=== PATIENT | female | born 1970 ===

== ENCOUNTER 2020-09-02 13:24 | Outpatient (REF) | payer BC, SELFPAY ==
--- NOTE | ~2020-09-02 | MM_ITS ---
EXAMINATION: MM SCREENING DIGITAL BREAST TOMOSYNTHESIS, BILATERAL CLINICAL INFORMATION: Screening. Asymptomatic. The lifetime risk of breast cancer based on the Tyrer-Cuzick Model is 7.2%. COMPARISON: Mammography: July 02, 2015 TECHNIQUE: Digital breast tomosynthesis is performed in both the craniocaudal and mediolateral oblique views along with computer-aided detection (CAD). Synthesized 2D images are generated from the tomosynthesis. FINDINGS: The breasts are heterogeneously dense, which may obscure small masses (ACR BI-RADS breast composition Category c). There are no significant masses, abnormal calcifications, or other abnormalities. MM/MM tomosynthesis screening BI IMPRESSION: There are no significant changes from prior study. ASSESSMENT: BI-RADS 1: Negative RECOMMENDATION: Routine annual mammography screening. This patient's information was entered into a reminder system with a target due date for their next mammogram.
== END 2020-09-02 13:25 | disposition home or self-care (01) ==
LOC: HO.MAMMO 13:24
PROVIDERS: Visit Provider Nurse Practitioner Family
DX: Z12.31 Encounter for screening mammogram for malignant neoplasm of breast (principal)
CPT/HCPCS: 77063; 77067

== ENCOUNTER 2022-03-15 10:04 | Outpatient (REF) | payer BC, SELFPAY ==
[2022-03-15 11:14] LABS: Appearance Urine Cloudy; Color Urine Other; Glucose Urine UA Negative (Negative); Leukocyte Esterase Urine Trace (Negative); Nitrite Urine Negative (Negative); PH 6.5 (5.0-9.0); UMIC TRIGGER UACC YES; Urine Blood Large (3+) (Negative); Urine Ketones Negative (Negative); Urine Protein 30 (1+) mg/dL (Neg-Trace)
[2022-03-15 11:28] LABS: Bacteria Urine Trace (None Seen); Hyaline Casts Urine 0-2 /LPF (0-2); RBC Urine >20 /HPF (0-2); UACC Culture Trigger YES; WBC Urine 21-50 /HPF (0-5)
[2022-03-15 11:37] LABS: MANUAL DIFF FLAG NO
[2022-03-15 11:54] LABS: Basophils Percent Auto 0.4 % (0-2); Eosinophils Absolute Auto 0.2 X10*3/uL (0.0-0.4); Eosinophils Percent Auto 2.6 % (0-4); Hematocrit 35.5 % (37.0-47.0); Hemoglobin 10.9 g/dl (12.0-16.0); Imm Gran Abs Auto 0.02 X10*3/uL (0.00-0.03); Imm Gran Pct Auto 0.3 % (0.0-0.4); Lymphocytes Absolute Auto 1.8 X10*3/uL (1.2-4.9); Lymphocytes Percent Auto 24.6 % (20-40); Mean Corpuscular HGB Conc 30.7 g/dl (31.0-35.0); Mean Corpuscular Hemoglobin 25.1 pg (27.0-33.0); Mean Corpuscular Volume 81.6 fL (80.0-98.0); Mean Platelet Volume 9.1 fL (9.4-12.3); Monocytes Absolute Auto 0.4 X10*3/uL (0.1-1.2); Monocytes Percent Auto 5.3 % (2-11); Neutrophils Absolute Auto 4.9 x10*3/uL (2.0-8.3); Neutrophils Percent Auto 66.8 % (45-73); Platelet Count 423 X10*3/uL (160-400); Red Blood Count 4.35 X10*6/uL (4.20-5.50); Red Cell Distribution Width 14.5 % (11.0-16.0); White Blood Count 7.4 X10*3/uL (4.8-10.8)
[2022-03-15 12:12] LABS: Alanine Aminotransferase 11 U/L (0-31); Albumin Level 4.3 g/dL (3.5-5.0); Alkaline Phosphatase 106 U/L (39-117); Anion Gap 11 (12-20); Aspartate Amino Transferase 15 U/L (5-31); Bilirubin Total 0.4 mg/dL (0.0-1.0); Blood Urea Nitrogen 14 mg/dL (9-16); Calcium 9.7 mg/dL (8.4-10.2); Carbon Dioxide 30 mmol/L (22-29); Chloride 104 mmol/L (96-108); Cholesterol 236 mg/dL; Estimated Glomerular Filt Rate > 60; Glucose Fasting 103 mg/dL (60-99); HDL Cholesterol 62 mg/dL; LDL Cholesterol Calculated 156 mg/dl; Potassium 4.7 mmol/L (3.3-5.1); Sodium 140 mmol/L (135-145); Total Protein 7.8 g/dL (6.5-8.0); Triglycerides 94 mg/dL
[2022-03-15 12:31] LABS: TSH reflex Free T4 2.79 uIU/mL (0.32-4.0)
[2022-03-17 17:46] LABS: UACC Culture Trigger NO
== END 2022-03-15 10:05 | disposition home or self-care (01) ==
LOC: HO.HMGCLDS 10:04
PROVIDERS: PCP Nurse Practitioner Family; Visit Provider Nurse Practitioner Family
DX: I10 Essential (primary) hypertension (principal)
CPT/HCPCS: 36415; 80053; 80061; 81001; 84443; 85025; 87086

== ENCOUNTER → 2022-06-16 12:50 | Outpatient (REF) | payer BC, SELFPAY ==
--- NOTE | 2022-06-16 12:56 | CA_ITS ---
Transthoracic Echocardiogram Patient (Last, First, Middle): Danielle Salazar, Gender: Female Date of : 1970 Age: 52 Procedure Date: 06/16/2022 Procedure Type: Transthoracic Echocardiogram Location: OP Height: 152.4 cm Weight: 73.48 kg BSA: 1.71 m2 Heart Rate: 76 bpm BP: 145 / 85 mmHg Director Of Sustainability: MARGA Alexander MD: Reuben Slaughter [facility] Crop Specialist: Jeffry Stewart MD Symptoms: R01.1 - Cardiac murmur, unspecified Study Quality: Good ECG Rhythm: Sinus Conclusions: - Essentially normal study Findings Left Ventricle Normal left ventricular size, thickness, and systolic function. The visually estimated ejection fraction is between 60-65%. Spectral Doppler is indicative of a normal filling pattern. Peak GLS is -18.3%, within normal limits Right Ventricle Normal right ventricular cavity size and systolic function. Atria Both atria are normal in size. There is a mobile atrial septum noted. Interatrial shunt cannot be excluded. Aortic Valve Normal aortic valve structure and function. There is no aortic valve stenosis. There is no aortic valve regurgitation. Mitral Valve Normal mitral valve structure and function. There is trace mitral valve regurgitation. There is no mitral valve stenosis. Pulmonic Valve The pulmonic valve is likely normal. There is trace pulmonic valve regurgitation. Tricuspid Valve Normal tricuspid valve structure. There is trace tricuspid valve regurgitation. The right ventricular systolic pressure is normal. The right ventricular systolic pressure is 18 mmHg. Normal right atrial pressure. There is no evidence of pulmonary hypertension. Great Vessels All visible segments of the aorta are normal in size. The pulmonary artery was not well visualized. Venous The inferior vena cava is normal in size and collapses greater than 50% with inspiration. Pericardium/Pleural There is no evidence of pericardial effusion. Recommendations, Care & Conclusions Recommend contrast study to evaluate intracardiac shunting. Measurements 2D Linear Measurements IVSd: 0.81 0.6-0.9/0.6-1.0 cm LVIDd: 4.53 3.9-5.3/4.2-5.9 cm LVIDd Index: 2.65 2.4-3.2/2.2-3.1 cm/m2 LVIDs: 3.44 2.0-3.6 cm LVPWd: 0.99 0.7-1.1 cm LA Diam: 3.60 2.7-3.8/3.0-4.0 cm LAIDs Index: 2.11 1.5-2.3 cm/m2 LV Mass: 166.73 67-162/88-224 g LV Mass Index: 97.50 43-95/49-115 g/m2 LVOT Diam: 1.90 3.0+(-)1.3 cm 2D Systolic Function EF 4C: 61.00 >55% EF 2C: 60.20 >55% EF BiP: 60.20 >55% Mitral Valve MV Pk E: 0.92 MV PK A: 0.91 MV Decel Time: 150.00 E/A: 1.00 E'Lateral: 8.49 E'Medial: 7.51 E/E' Med: 12.20 E/E' Lat: 10.80 PHT: 44.00 MVA PHT: 5.00 Decel Wolfe: 6.14 Aortic Valve AoV Pk Bradley: 1.39 AoV Mn Bradley: 1.03 AoV VTI: 0.31 AoV Pk Grad: 8.00 Aov Mn Grad: 5.00 MONICA Cont.VTI: 1.70 LVOT LVOT Pk Bradley: 0.88 LVOT Mn Bradley: 0.68 LVOT VTI: 0.19 LVOT Pk Grad: 3.00 LVOT Mn Grad: 2.00 LVOT Diam: 1.90 LVOT Area: 2.84 Diastolic Function MV Pk E: 0.92 MV Pk A: 0.91 E/A: 1.00 E'Medial: 7.51 E/E' Med: 12.20 E' Laterial: 8.49 E/E' Lat: 10.80 Right Ventricle TAPSE (mm): 21.60 TVS' Bradley: 9.90 Tricuspid Valve TR Pk Bradley: 1.95 TR Pk Grad: 15.00 RA Press: 3.00 RVSP: 18.00 Great Vessels Aorta Sinus of Valsalva: 3.20 2.0-3.5 cm Ao Asc: 3.40 2.1-3.4 cm Pulmonary Valve PV Pk Bradley: 0.95 Peak PV Grad: 4.00 Updated in Other Vendor System with Status of Final Jeffry Stewart MD electronically signed on 06/16/2022 3:24:14 PM with status of Final
== END ==
LOC: HO.CARD 12:50
PROVIDERS: Visit Provider Nurse Practitioner Family
DX: R01.1 Cardiac murmur, unspecified (principal)
CPT/HCPCS: 93306; 93356

== ENCOUNTER 2023-04-24 08:51 | Outpatient (AMB) | payer BC, SELFPAY ==
[2023-04-24 08:53] VITALS: BP 126/74; PULSE 72; O2SAT 98; BMI 33.4
--- NOTE | 2023-04-24 08:53 | A.OFFPC_ITS ---
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 Required: No Accompanied by: Self / Same As Patient Allergies Sulfa (Sulfonamide Antibiotics) [SULFA (SULFONAMIDE ANTIBIOTICS)] Allergy (Unknown, Verified 04/24/23 09:39) HEARTBURN, anaphylaxis, facial swelling shrimp Allergy (Unknown, Uncoded 04/24/23 09:39) rash Medication List - Last Reconciled 04/24/23 by ALMAS Tovar amlodipine 5 mg PO DAILY calcium carbonate (Calcium 500) 500 mg PO DAILY ferrous sulfate 325 mg PO DAILY losartan 25 mg PO DAILY Tobacco use date assessed: 04/24/23 Dental Screening Dental Screen Date: 04/24/23 Did you have a dental visit in the last 12 months?: Yes Did you have a dental problem in the last 6 months where you did not have access to dental care?: No Was dental information given to patient?: Patient has dentist HPI High Blood Pressure HPI Details HTN: Blood pressure is stable, managed with amlodipine 5mg and losartan 25mg. Denies chest pain, shortness of breath, headache, dizziness, and blurred vision. [facility] Medical History Esophageal dysmotility Hypercalcemia Anemia Surgical History History of tubal ligation History of parathyroidectomy History of Social History Housing: House Patient Tobacco Use Status: Former Tobacco user Quit Date: quit 2018 e-Cigarette/Vaping Use: Never Used Second Hand Smoke Exposure: Yes Current occupational status: employed Current occupation: [employer] Current occupational exposures/hazards: Yes Cognitive needs: No Hearing needs: No Vision needs: No Questionnaire PHQ-9 Over the last 2 weeks, how often have you been bothered by any of the following problems? 1. Little interest or pleasure in doing things: not at all 2. Feeling down, depressed, or hopeless: not at all 3. Trouble falling or staying asleep, or sleeping too much: not at all 4. Feeling tired or having little energy: not at all 5. Poor appetite or overeating: not at all 6. Feeling bad about yourself - or that you are a failure or have let yourself or your family down: not at all 7. Trouble concentrating on things, such as reading the newspaper or watching television: not at all 8. Moving or speaking so slowly that other people could have noticed. Or the opposite - being so fidgety or restless that you have been moving around a lot more than usual: not at all 9. Thoughts that you would be better off or of hurting yourself in some way: not at all Total score: 0 Depression Screening Interpretation: Negative Depression Screening Done: Yes 96621 - PHQ-9 Billing: Yes Source: Developed by Drs. Christiano Sneed, Sandra Buckner, Raj Allen and colleagues, with an educational david from [employer]. Thrive Questionnaire Date Thrive assessed: 04/24/23 I am a: Patient What is your living situation today?: I have a steady place to live Within the past 12 months, did the food you bought not last and you didn't have the money to get more?: Never true Within the past 12 months, did you worry whether your food would run out before you got money to buy more?: Never true Do you have trouble paying for medicines?: No Do you have trouble getting transportation to medical appointments?: No Do you have trouble paying your heating and electricity bill?: No Do you have trouble taking care of your child, family member or friend?: No Do you have trouble with day-to-day activities such as bathing, preparing meals, shopping, managing finances, etc.?: No Are you currently unemployed and looking for a job?: No Are you interested in more education?: No Please select the resources that you would like help with: None Currently or been in a relationship where the following occur: no concerns reported and I choose not to answer this question THRIVE Score: 0 AUDIT C Alcohol Use Questionnaire (AUDIT-C) 1. How often do you have a drink containing alcohol?: Never 3. How often do you have six or more drinks on one occasion?: Never Total Score: 0 Score Reviewed/Action Taken: Yes NIKOLAI-7 AMB Questionnaire NIKOLAI-7 Date NIKOLAI - 7 assessed: 04/24/23 Feeling nervous, anxious, or on edge: 0 = Not at all Not being able to stop or control worryin = Not at all Worrying too much about different things: 0 = Not at all Trouble relaxin = Not at all Being so restless that it is hard to sit still: 0 = Not at all Becoming easily annoyed or irritable: 0 = Not at all Feeling afraid as if something awful might happen: 0 = Not at all Total NIKOLAI-7 score (0-4 normal; 5-9 mild; 10-14 moderate; 15-21 severe): 0 Source: Developed by Drs. Christiano Sneed, Sandra Buckner, Raj Allen and colleagues, with an educational david from [employer]. NIKOLAI-7 Assessment Billing NIKOLAI-7 Assessment Tool: NIKOLAI-7 Assessment 45008 Review of Systems Const Reports as per HPI Physical exam (Primary Care) Vital Signs: Last Vital Signs Pulse 72 04/24/23 08:53 BP 126/74 04/24/23 08:53 Pulse Ox 98 04/24/23 08:53 BMI result Body Mass Index 33.4 Tobacco/Smoking Status: Tobacco use Status Tobacco use date assessed 04/24/23 04/24/23 08:56 Patient Tobacco Use Status Former Tobacco user 04/24/23 08:56 e-Cigarette/Vaping Use Never Used 04/24/23 08:56 PHQ-9: PHQ-9 Score PHQ-9: Total score 0 04/24/23 09:10 Depression Screening Interpretation: Negative Thrive Assessment: Date of Thrive Assessment Date Thrive assessed 04/24/23 04/24/23 09:02 Currently or been in a relationship where the following occur: no concerns reported and I choose not to answer this question Const General: cooperative Nutritional Appearance: obese Orientation/consciousness: patient oriented x3 Resp Effort & Inspection: normal respiratory effort Auscultation: clear to auscultation bilaterally Cardio Rate: regular rate Rhythm: regular rhythm Heart sounds: S1 normal heart sound present, S2 normal heart sound present and Murmur heart sound present systolic (faint) Neuro General: patient oriented x3 Extrem Right lower extremity: no edema Left lower extremity: no edema Psych Appearance: grossly normal Mental Status: mental status grossly normal Speech and movement: Normal speech and movement present Affect: normal affect Attitude: cooperative Thought process: Normal thought process present Thought content: Normal thought content present Insight: Good insight present (Psych) Judgement: Good judgement present (Psych) Assessment and Plan Assessment & Plan (1) HTN (hypertension): Code(s): I10 - Essential (primary) hypertension Plan: cont current med regime, encouraged pt to get labs drawn in the near future Plan The patient agreed to the use of a medical assistant supervisor for this encounter. Scribed for ALMAS Banks by Vaishali Jones medical assistant supervisor, on 04/24/2023 at 09:10 EST. Coding Level of Care Code Est Pt Level 3 (44706) Diagnoses HTN (hypertension) I10 Additional Codes NIKOLAI-7 Assessment Billing - NIKOLAI-7 Assessment Tool: NIKOLAI-7 Assessment 76598 ([id number])
== END 2023-04-24 09:26 | disposition home or self-care (01) ==
PROVIDERS: PCP Nurse Practitioner Family; Visit Provider Nurse Practitioner Family
DX: I10 Essential (primary) hypertension (principal)
CPT/HCPCS: 99213

== ENCOUNTER → 2023-05-22 08:00 | Outpatient (BNV) | payer BC, SELFPAY | PROVIDERS: PCP Nurse Practitioner Family; Visit Provider Radiology Diagnostic Radiology | DX: Z12.31 Encounter for screening mammogram for malignant neoplasm of breast (principal) | CPT/HCPCS: 77063; 77067 ==

== ENCOUNTER 2023-05-22 08:04 | Outpatient (REF) | payer BC, SELFPAY ==
--- NOTE | ~2023-05-22 | MM_ITS ---
EXAMINATION: MM SCREENING DIGITAL BREAST TOMOSYNTHESIS, BILATERAL CLINICAL INFORMATION: Screening. Asymptomatic. COMPARISON: Mammography: This study is compared with prior exams dating back to 2016. TECHNIQUE: Digital breast tomosynthesis is performed in both the craniocaudal and mediolateral oblique views along with computer-aided detection (CAD). Synthesized 2D images are generated from the tomosynthesis. FINDINGS: There are scattered areas of fibroglandular density (ACR BI-RADS breast composition Category b). There are no significant masses, abnormal calcifications, or other abnormalities. MM/MM tomosynthesis screening BI IMPRESSION: No mammographic evidence of malignancy. ASSESSMENT: BI-RADS BI-RADS 1 - Negative RECOMMENDATION: Routine annual mammography screening. 1 year F/U This examination should not preclude the clinical evaluation of a suspicious palpable abnormality. This patient's information was entered into a reminder system with a target due date for their next mammogram.
== END 2023-05-22 08:05 | disposition home or self-care (01) ==
LOC: HO.MAMMO 08:04
PROVIDERS: PCP Nurse Practitioner Family; Visit Provider Nurse Practitioner Family
DX: Z12.31 Encounter for screening mammogram for malignant neoplasm of breast (principal)
CPT/HCPCS: 77063; 77067

== ENCOUNTER 2023-12-18 18:37 | Emergency (ER) | payer BC, SELFPAY ==
--- NOTE | ~2023-12-18 | XR_ITS ---
EXAMINATION: XR HAND, LEFT CLINICAL INFORMATION: Laceration to the thumb and second finger. COMPARISON: None available. TECHNIQUE: Three views of the left hand. FINDINGS: There are bandages over the thumb and index finger. No radiopaque foreign body. Focal area of ovoid hyperdensity involving the cortex of the distal phalanges involving the periarticular bone at the volar ulnar side of the bone. This is similar appearance of an ovoid hypodensity overlying the distal metadiaphysis of the proximal phalangeal the of the thumb. These are likely developmental, rather than acute fracture. XR/XR hand LT min 3V IMPRESSION: 1. No radiopaque foreign body. 2. Focal area of ovoid hyperdensity involving the cortex of the distal phalanges involving the periarticular bone at the volar ulnar side of the bone. This is similar appearance of an ovoid hypodensity overlying the distal metadiaphysis of the proximal phalangeal the of the thumb. These are likely developmental, rather than acute fracture. Electronically signed by: Kraig Cavazos MD 12/18/2023 09:15 PM EDT RP
[2023-12-18 19:35] VITALS: BP 160/93; PULSE 88; RESP 18; TEMP 36.6; O2SAT 99; BMI 31.4
--- NOTE | 2023-12-18 19:41 | ED.WOUNDLAC ---
HPI - Wound/Laceration General Chief Complaint: Wound/Laceration Stated Complaint: L thumb lac with knife Time Seen by Provider: 12/18/23 23:41 Source: patient and family Mode of arrival: ambulatory Limitations: no limitations History of Present Illness ED Provider: Dr. Huang HPI narrative: Patient was carving a pumping and she cut her left thumb and 2nd digit with a knife. 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 Onset (ago): hour(s) Related Data Home Medications ?Medication ?Instructions ?Recorded ?Confirmed ferrous sulfate 325 mg (65 mg 325 mg PO DAILY 03/01/22 04/24/23 iron) tablet,delayed release calcium carbonate (Calcium 500) 500 mg PO DAILY 05/30/22 04/24/23 Previous Rx's ?Medication ?Instructions ?Recorded amlodipine 5 mg tablet 5 mg PO DAILY #90 tabs 10/05/23 losartan 25 mg tablet 25 mg PO DAILY #90 tabs 10/05/23 Allergies Allergy/AdvReac Type Severity Reaction Status Date / Time Sulfa (Sulfonamide Allergy Unknown HEARTBURN, Verified 12/18/23 19:43 Antibiotics) anaphylaxis, [SULFA (SULFONAMIDE facial ANTIBIOTICS)] swelling shrimp Allergy Unknown rash Uncoded 12/18/23 19:43 Review of Systems Review of Systems: Yes all other systems are reviewed and are negative Neurologic: Denies Sensory deficit (Neuro) PMFSH Past Medical History Medical History Esophageal dysmotility Hypercalcemia Anemia Surgical History History of tubal ligation History of parathyroidectomy History of Social History Social History Housing: House Patient Tobacco Use Status: Former Tobacco user e-Cigarette/Vaping Use: Never Used Second Hand Smoke Exposure: Yes Current occupational status: employed Current occupation: [employer] Current occupational exposures/hazards: Yes Cognitive needs: No Hearing needs: No Vision needs: No Physical Exam Vital Signs: Vital Signs: Last Vital Signs Temp 97.9 F 12/18/23 19:35 Pulse 88 12/18/23 19:35 Resp 18 12/18/23 19:35 BP 160/93 H 12/18/23 19:35 Pulse Ox 99 12/18/23 19:35 O2 Del Method Room Air 12/18/23 19:35 BMI result Body Mass Index 31.4 Const: General: healthy appearing Nutritional Appearance: average body habitus Orientation/consciousness: oriented to person and patient oriented x3 Limitations: no limitations HEENT: Head: Yes normal to inspection Ears: external ears normal General nose exam: Normal external nose present Mouth: Normal oral and palatal mucosa present and oropharynx normal Throat: Yes posterior oropharynx normal Eyes: General: appearance normal, both eyes and all related structures Neck: Other: supple Neck: Yes normal visual inspection Chest: Chest palpation & inspection: normal inspection of the chest Resp: Auscultation: clear to auscultation bilaterally Cardio: Jugular venous distension: no JVD Rate: regular rate Rhythm: regular rhythm Heart sounds: S1 normal heart sound present and S2 normal heart sound present GI: Inspection: Yes normal to inspection Palpation (GI): Soft to palpation, nontender and No hepatosplenomegaly present Auscultation: normal bowel sounds : General: Yes no CVA tenderness Back/Spine/Pelvis: Back: no CVA tenderness Skin: Other: see extremity note Neuro: General: oriented to person and patient oriented x3 Cranial nerves: Yes CN's II-XII intact bilaterally Motor exam (neuro): 5/5 motor strength present throughout Sensory Exam: No Sensory deficit (Neuro) Extrem: Other: Dorsal aspect of thumb over dip joint 4cm, lateral aspect of 2nd finger over dip 3cm. Fingers with full range of motion. Psych: Appearance: grossly normal Course Course Course Narrative: This is an RME: Additional HPI, ROS, PE not included below will be deferred to primary provider. RME assessment and note performed by: Lilliana Diop PA-C This is a 53-year-old female, with a hx of HTN, who presents emergency department with complaints of left thumb and left second finger laceration s/p knife injury. Pt's mother last week and she was cutting a pumpkin for a baptist ceremony and the knife slipped and cut her thumb and second finger. Left thumb and second digit with partial thickness laceration needing suture repair. Patient unsure when her last tetanus was however patient declines. I reviewed risks and benefits of tetanus however patient has the capacity to make her own decision. Plan: xray, suture repair Reevaluation(s) Reevaluation #1: Patient thumb prepped and draped in sterile fashion, 1% lidocaine used for anesthesia digital block wound irrigated under pressure with saline, closed with 5-0 nylon x 5. Patient tolerated procedure well. Patient 2nd digit prepped and draped in sterile fashion, 1% lidocaine used for anesthesia digital block, wound irrigated under pressure with saline, closed with 5-0 nylon x 4. Patient tolerated procedure well. Time: 00:21 Medical Decision Making Differential Diagnosis Differential Diagnoses: The differential diagnosis associated with the presentation includes (finger lacerations) Independent Interpretation I performed an independent interpretation of an: Plain X-Ray (fingers: no fracture) Prescription Management I considered prescription management with: Antibiotic (wounds not contaminated will not start abx at this time) Chronic Conditions Patient?s care impacted by: Hypertension Discharge Plan Discharge Clinical Impression: Laceration Patient Disposition: Home, Self-Care Instructions: Care For Your Stitches (ED) Additional Instructions: suture removal 10 days Prescriptions: No Action amlodipine 5 mg tablet 5 mg PO DAILY Qty: 90 5RF losartan 25 mg tablet 25 mg PO DAILY Qty: 90 5RF calcium carbonate [Calcium 500] 500 mg calcium (1,250 mg) tablet,chewable 500 mg PO DAILY ferrous sulfate 325 mg (65 mg iron) tablet,delayed release (DR/EC) 325 mg PO DAILY Referrals: Reuben Slaughter, [employer] [Primary Care Provider] - 10 days Print Language: Rwandan
[2023-12-19] MEDS: Ibuprofen 600 MG TABLET PO (01:03)
[2023-12-19 01:04] VITALS: BP 160/93; PULSE 88; RESP 18; TEMP 36.6; O2SAT 99
== END 2023-12-19 01:05 | disposition home or self-care (01) ==
PROVIDERS: Emergency Provider Emergency Medicine; PCP Nurse Practitioner Family
DX: S61.012A Laceration without foreign body of left thumb without damage to nail, initial encounter (principal); S61.211A Laceration without foreign body of left index finger without damage to nail, initial encounter; W26.0XXA Contact with knife, initial encounter; Y93.89 Activity, other specified; Y92.9 Unspecified place or not applicable; Y99.9 Unspecified external cause status
CPT/HCPCS: 12002; 73130; 99283; 99284

== ENCOUNTER 2023-12-29 09:18 | Outpatient (AMB) | payer BC, SELFPAY ==
[2023-12-29 10:35] VITALS: BP 134/82; PULSE 76; TEMP 36.6; O2SAT 99; BMI 32.9
--- NOTE | 2023-12-29 10:35 | MHC.OFFWIV ---
Intake Vital Signs 12/29/23 10:35 Height 4 ft 11 in Weight 163 lb BMI 32.9 BP 134/82 Blood Pressure Location Rt brachial Position Sitting Pulse 76 Pulse Source Pulse Oximeter Temp 97.9 F Temp Source Oral Pulse Oximetry (%) 99 Oxygen Delivery Method Room Air Intake Visit Reasons: EP Stitch removal Intake Note: Pt is here today stitches removal Lt thumb and Lt index finger Patient Tobacco Use Status: Former Tobacco user Allergies Sulfa (Sulfonamide Antibiotics) [SULFA (SULFONAMIDE ANTIBIOTICS)] Allergy (Unknown, Verified 12/31/23 10:09) HEARTBURN, anaphylaxis, facial swelling shrimp Allergy (Unknown, Uncoded 12/31/23 10:09) rash HPI EP Stitch removal HPI Details Patient is a 53 year old female who comes to the walk in clinic for suture removal. Eleven days ago she was cutting up a pumpkin and had lacerated her left thumb over the IP joint, as well as lateral side of the second finger at the level of the DIP. Per the emergency department no, the lacerations were not full thickness and she had full range of motion at that time to both of the injured digits. The wounds were sutured closed, she had declined tetanus prophylaxis, and she was advised to follow-up for suture removal in 10 days. She admits that she has been getting the fingers wet cleaning her house, and that she has been continuing to usie her fingers as much as she is able to. She was not placed in a splint. She has some numbness around the area of the lacerated IP joint of the thumb, and some tenderness to the ulnar aspect of the laceration on the index finger. She admits to weakness of the thumb especially, and has decreased range of motion. No fever or chills, discharge or bleeding, nausea vomiting or diarrhea, or other significant symptoms. [facility] Medical History Esophageal dysmotility Hypercalcemia Anemia Surgical History History of tubal ligation History of parathyroidectomy History of Social History Housing: House Patient Tobacco Use Status: Former Tobacco user e-Cigarette/Vaping Use: Never Used Second Hand Smoke Exposure: Yes Current occupational status: employed Current occupation: [employer] Current occupational exposures/hazards: Yes Cognitive needs: No Hearing needs: No Vision needs: No Review of Systems Const All systems reviewed & are unremarkable except as noted in HPI and below Physical Exam Vital Signs: Last Vital Signs Temp 97.9 F 12/29/23 10:35 Pulse 76 12/29/23 10:35 BP 134/82 12/29/23 10:35 Pulse Ox 99 12/29/23 10:35 Oxygen Delivery Method Room Air 12/29/23 10:35 BMI result Body Mass Index 32.9 Extrem Other: Patient has a horizontal laceration approximately 3 cm in length on the dorsal side of her left thumb at the IP joint. There is [address], intact however the area around the laceration is grossly edematous, and bulging between the sutures as well as erythema. There is no gross discharge or apparent warmth, but some dried blood. She has significantly decreased range of motion especially with flexion at the IP joint, decreased sensation there, and significantly decreased strength, especially with flexion. There is a second laceration on the lateral side of the 2nd finger, at the level of the DIPJ he, just about 2-1/2 cm long. This digit has intact 4 sutures, with no significant edema erythema or warmth. She has full range of motion and strength in that finger. Good cap refill on both digits, 2+ peripheral pulse. Skin distally is pink warm and dry. Assessment & Plan Assessment & Plan (1) Laceration of finger: Code(s): S61.219A - Laceration without foreign body of unspecified finger without damage to nail, initial encounter Qualifiers: Damage to nail status: without damage Encounter type: subsequent encounter Finger: thumb Foreign body presence: without foreign body Laterality: left Qualified Code(s): S61.012D - Laceration without foreign body of left thumb without damage to nail, subsequent encounter Plan: Removed 4 sutures from the left index finger, and 5 sutures to the left thumb. The thumb was extremely edematous, with decreased range of motion and strength at the IP joint, and apparent cellulitic changes.. Due to this, the sutures were removed, however there was dehiscence to the laceration quite extensively likely due to poor wound healing from overuse at the joint and the cellulitis. Therefore Steri-Strips were placed to approximate the edges a little more while the wound has extended healing, while still allowing for discharge from the cellulitis. There was no current discharge for culture. She was told to keep it clean covered and dry, avoid flexing the thumb and to wear a splint. She will need further evaluation for the weakness with extension at the IP joint, as well as close monitoring of her healing process. Referral to hand was put through today, and I asked her to follow up with her PCP or come back to the walk-in in the next 2 days to be sure that the antibiotic is helping. She can return to work light duty, but was advised not to use the thumb, keep bandaged and splinted, and to elevate the hand when able. She should follow up sooner or go to the emergency department with worrisome symptoms as needed. Orders: Referrals Orthopedics Referral S61.019A - Laceration without foreign body of unspecified thumb without damage to nail, initial encounter Medications: New amoxicillin-pot clavulanate 875-125 mg 1 tab PO BID 10 days 20 tabs 0RF Coding Level of Care Code Est Pt Level 4 (71601) Diagnoses Laceration of left thumb without foreign body without damage to nail, subsequent encounter S61.012D Damage to nail status: without damage Encounter type: subsequent encounter Finger: thumb Foreign body presence: without foreign body Laterality: left
== END 2023-12-29 12:04 | disposition home or self-care (01) ==
PROVIDERS: PCP Nurse Practitioner Family; Visit Provider Physician Assistant Medical
DX: S61.012D Laceration without foreign body of left thumb without damage to nail, subsequent encounter (principal)

== ENCOUNTER → 2023-12-29 09:18 | Outpatient (BNVA) | payer BC, SELFPAY | PROVIDERS: PCP Nurse Practitioner Family ==

== ENCOUNTER 2023-12-31 09:44 | Outpatient (AMB) | payer BC, SELFPAY ==
[2023-12-31 09:58] VITALS: BP 140/90; PULSE 85; O2SAT 98; BMI 32.8
--- NOTE | 2023-12-31 09:58 | MHC.OFFWIV ---
Intake Vital Signs 12/31/23 09:58 Height 4 ft 11 in Weight 162 lb 4 oz BMI 32.8 BP 140/90 H Blood Pressure Location Lt brachial Position Sitting Pulse 85 Pulse Source Pulse Oximeter Pulse Oximetry (%) 98 Oxygen Delivery Method Room Air Intake Visit Reasons: EP work note, work wont accept saturdays note. Intake Note: Patient here for pain in thumb of left hand. Patient Tobacco Use Status: Former Tobacco user Allergies Sulfa (Sulfonamide Antibiotics) [SULFA (SULFONAMIDE ANTIBIOTICS)] Allergy (Unknown, Verified 12/31/23 10:09) HEARTBURN, anaphylaxis, facial swelling shrimp Allergy (Unknown, Uncoded 12/31/23 10:09) rash Do you need a note to return to daycare/school/sports/work: Yes HPI HPI Comments History of Present Illness Details Patient is a 53-year-old female here for follow-up of her left thumb laceration. She initially lacerated her left thumb on December 17 and 5 sutures were placed in the [facility] ED. She states everything seemed to be healing okay and she came to this clinic on 12/28 to have the sutures removed. The provider noted 2 things while they were removing the sutures, 1st that it looked infected so the patient was placed in an antibiotic which she has been taking and the patient states she thinks that the infection seems to be clearing very well. The other issue that was noted was that the patient had reduced range of motion of the thumb so referral was placed to orthopedics. On that date, she was given a note to return to work with restrictions on the left thumb as it was placed in a splint. Patient states it feels much better and she thinks she can got back to work with no restrictions. She tells me that taking antibiotics for 2 days has improved the pain and the swelling. She tells me she has to go back to work to afford to live and is asking for a note that states she has no restrictions. [facility] Medical History Esophageal dysmotility Hypercalcemia Anemia Surgical History History of tubal ligation History of parathyroidectomy History of Social History Housing: House Patient Tobacco Use Status: Former Tobacco user e-Cigarette/Vaping Use: Never Used Second Hand Smoke Exposure: Yes Current occupational status: employed Current occupation: [employer] Current occupational exposures/hazards: Yes Cognitive needs: No Hearing needs: No Vision needs: No Review of Systems Const All systems reviewed & are unremarkable except as noted in HPI and below Physical Exam Vital Signs: Last Vital Signs Pulse 85 12/31/23 09:58 BP 140/90 H 12/31/23 09:58 Pulse Ox 98 12/31/23 09:58 Oxygen Delivery Method Room Air 12/31/23 09:58 BMI result Body Mass Index 32.8 Const General: cooperative, healthy appearing, comfortable, no acute distress and well developed Orientation/consciousness: patient oriented x3 Limitations: no limitations HEENT Head: Yes normal to inspection Neck Neck: Yes normal visual inspection and Yes supple Neuro General: patient oriented x3 Extrem Left upper extremity: hand (Lac left thumb: healing well, no warmth, drainage, reduced rom) Details: neuromotor exam abnormal Details: thumb opposition abnormal and thumb IP flexion abnormal and swelling Location: of the thumb (slight near lac); no tenderness Assessment & Plan Assessment & Plan (1) Laceration of left thumb: Code(s): S61.012A - Laceration without foreign body of left thumb without damage to nail, initial encounter Qualifiers: Encounter type: subsequent encounter Damage to nail status: without damage Foreign body presence: without foreign body Qualified Code(s): S61.012D - Laceration without foreign body of left thumb without damage to nail, subsequent encounter Plan: Infection seems to be resolving well, encouraged patient to finish her antibiotics. With reduced range of motion, concern for further injury, encouraged patient to follow up with Orthopedics. If referral has been sent. Did write a work note to clear her to go back to work with no restrictions as patient requested. Gave wound care instructions. Plan See above Coding Level of Care Code Est Pt Level 3 (39724) Diagnoses Laceration of left thumb without foreign body without damage to nail, subsequent encounter S61.012D Encounter type: subsequent encounter Damage to nail status: without damage Foreign body presence: without foreign body
== END 2023-12-31 10:43 | disposition home or self-care (01) ==
PROVIDERS: PCP Nurse Practitioner Family; Visit Provider Physician Assistant
DX: S61.012D Laceration without foreign body of left thumb without damage to nail, subsequent encounter (principal)

== ENCOUNTER → 2023-12-31 09:44 | Outpatient (BNVA) | payer BC, SELFPAY | PROVIDERS: PCP Nurse Practitioner Family; Visit Provider Physician Assistant ==

== ENCOUNTER 2024-01-04 08:57 | Outpatient (AMB) | payer BC, SELFPAY ==
--- NOTE | 2024-01-04 09:04 | A.OFFVIS_ITS ---
Vital Signs 01/04/24 09:21 Height 4 ft 11 in Weight 162 lb BMI 32.7 Intake Visit Reasons: [employer]- ED f/u Left thumb laceration Intake Note: Danielle a 53 year old female who presents today for an ER follow up of left thumb laceration, DOI 12/18/23. Patient reports that she cut her thumb and pointer finger while she was cutting up pumpkins. She presented to [facility] the same day where sutures were applied and referred to orthopedics. Currently no pain, just discomfort in her fingers. States a heavy sensation in her thumb and a tingling sensation at the tip of her pointer finger. She was seen by her PCP who removed sutures, patient states wound opened and steri-strips were applied. She recently bumped her thumb which caused her thumb to bleed. She is currently taking ant ibiotics for her injury. Allergies Sulfa (Sulfonamide Antibiotics) [SULFA (SULFONAMIDE ANTIBIOTICS)] Allergy (Unknown, Verified 01/04/24 09:21) HEARTBURN, anaphylaxis, facial swelling shrimp Allergy (Unknown, Uncoded 01/04/24 09:21) rash Medication List - Last Reconciled 01/05/24 by Lorenzo David PA-C amlodipine 5 mg PO DAILY amoxicillin-pot clavulanate 875-125 mg 1 tab PO BID 10 days calcium carbonate (Calcium 500) 500 mg PO DAILY ferrous sulfate 325 mg PO DAILY losartan 25 mg PO DAILY HPI HPI [employer]- ED f/u Left thumb laceration: Details: 53-year-old female who presents to the office today for an ED follow-up of left thumb injury, 12/18/23. She reports she lacerated her thumb and pointer finger while she was cutting a pumpkin. She was seen at ER the same day where sutures were applied and she was referred to our office. She was also seen by her PCP who removed sutures however the wound opened and steri strips were applied. She currently states she has no pain however she does have stiffness and discomfort in her fingers. She also experiences a heavy sensation in her thumb and a tingling sensation at the tip of her pointer finger. She reports she recently bumped her thumb which caused her to bleed. She is currently taking antibiotics for her injury. 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 [facility] Medical History Esophageal dysmotility Hypercalcemia Anemia Surgical History History of tubal ligation History of parathyroidectomy History of Social History (Updated 01/04/24 @ 09:06 by JESÚS Grajeda) Housing: House Patient Tobacco Use Status: Former Tobacco user e-Cigarette/Vaping Use: Never Used Second Hand Smoke Exposure: Yes Current occupational status: employed Current occupation: [employer], [employer], right hand dominant Current occupational exposures/hazards: Yes Cognitive needs: No Hearing needs: No Vision needs: No Review of Systems Const All systems reviewed & are unremarkable except as noted in HPI and below Physical Exam Vital Signs: BMI result Body Mass Index 32.7 Const General: cooperative, healthy appearing, comfortable, no acute distress, well developed and alert Orientation/consciousness: patient oriented x3 HEENT Head: Yes normal to inspection, Yes normocephalic and Yes atraumatic Eyes General: appearance normal, both eyes and all related structures Resp Effort & Inspection: normal respiratory effort and able to speak in complete sentences Cardio Rate: regular rate Peripheral pulses: Peripheral pulses 2+ throughout GI Palpation (GI): Soft to palpation Skin Lesions: no lesions Rashes: no rashes Neuro General: patient oriented x3 Extrem Other: Left hand: Laceration over the index finger along the radial side. No extension into the flexor or extensor tendon region. FDP and FDS are intact. NVI. Left thumb: Laceration over the IP joint of thumb. She has motion at the MCP joint however he is lacking passive and active extension at the IP joint. NVI. Assessment & Plan Assessment & Plan (1) Extensor tendon laceration of finger with open wound: Code(s): S56.429A - Laceration of extensor muscle, fascia and tendon of unspecified finger at forearm level, initial encounter; S61.209A - Unspecified open wound of unspecified finger without damage to nail, initial encounter Category: Medical Plan I discussed the case with No Conte over the phone. The recommendation is to bring the patient to OR for exploration and possible extensor tendon repair. However, the patient is extremely apprehensive to proceed with surgical intervention as she feels this may limit her ability to perform ADLs work ability and wantsto avoid any extensive period of time out of work. I did explain her the risks without surgical intervention which include decreased motion and flatwork presser strength and limitations with daily activities which she is completely content with. I did order occupational therapy to help restore her function however she declined this as well and states she may be attending 1 or 2 visits for education on home program. She will see us back as needed. If she decides to proceed with surgical intervention she will see us back sooner than later. ? Orders: Orders OT Evaluation and Treatment 01/04/24 S56.429A - Laceration of extensor muscle, fascia and tendon of unspecified finger at forearm level, initial encounter, S61.209A - Unspecified open wound of unspecified finger without damage to nail, initial encounter Patient Instructions: Scribed for Lorenzo David PA-C, by Heri Gilliam medical front desk specialist, on 01/04/2024 at 9:00 AM EST.? I, Lorenzo David PA-C, have personally reviewed and agree with the information entered by the scribe. Coding Level of Care Code New Pt Level 4 (48661) Complex EM visit Add On G2211 Diagnoses Extensor tendon laceration of finger with open wound S56.429A; S61.209A
[2024-01-04 09:21] VITALS: BMI 32.7
== END 2024-01-04 09:54 | disposition home or self-care (01) ==
LOC: HO.HOS 08:57
PROVIDERS: PCP Nurse Practitioner Family; Visit Provider Physician Assistant
DX: S56.429A Laceration of extensor muscle, fascia and tendon of unspecified finger at forearm level, initial encounter (principal); S61.209A Unspecified open wound of unspecified finger without damage to nail, initial encounter
CPT/HCPCS: 99204

== ENCOUNTER → 2024-01-04 08:57 | Outpatient (BNVA) | payer BC, SELFPAY | PROVIDERS: PCP Nurse Practitioner Family; Visit Provider Physician Assistant ==

== ENCOUNTER 2024-01-17 07:47 | Outpatient (RCR) | payer BC, SELFPAY ==
--- NOTE | 2024-01-18 14:24 | MHC.OT.OEV ---
[address] [phone] F: [phone] Occupational Therapy Evaluation Patient Name: Danielle Salazar I Diagnosis: Laceration of 1st and 2nd digit non op Date of Onset: 12/18/23 Date of Surgery: Attending Provider: Lorenzo David Prescribed Treatment: Follow Up Appointment: History of Current Condition: 53 y/o F s/p 1st and 2nd digit on 12/18/23 cutting a pumpkin with a skiver operator knife. Pt presents with wounds that are in the process of healing. Stitches were removed 10 days post receiving stitches, pt reports the wound on her 1st digit reopened once the stitches came out so she applied liquid bandage on it. Doctor No recommended surgical intervention for tendon laceration but patient refused surgery. Pt reports using gloves while doing the dishes or washing her hair to avoid getting the wound wet or soapy. Reports intermittent numbness and tingling. 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 uses compensatory strategies during ADL tasks; rubber gloves single handed strategies. 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 Sleep: (-) Driving: (+) Vision: Balance: Pain Assessment Pain Score: 1 Pain Scale Used: Numeric (0 - 10) Pain Location and Description: Pins and needles in the 2nd digit intermittent numbness in 1st and 2nd digit sharp pain in 1st and 2nd digit Aggravating Factors: thumb flexion/adduction Alleviating Factors: Band-Aids / gloves Triple antibiotics Skin and Soft Tissue Assessment Skin and Soft Tissue: Redness Swelling Wound Comments: Pt has healing wounds on 1st and 2nd digit Nerve assessment Ulnar Nerve: Median Nerve: Radial Nerve: Comments: Sensory Assessment Temperature: Light Touch: Proprioception: Vibration: Comments: 4.56 monofilament WFL 4.31 monofilament impaired Edema Assessment Upper Extremity: Left Impaired Lower Extremity: Comments: Mild swelling over IP of thumb Dexterity Assessment Dexterity: Comments: Unable to assess, will assess in future visits Special Tests Comments: AROM(PROM) Strength Cervical Cervical Flexion: Cervical Extension: Cervical Lateral Flexion: Cervical Rotation: Comments: Shoulder Flexion: Extension: Abduction: Internal Rotation: External Rotation: Comments: Flexion: Extension: Abduction: Internal Rotation: External Rotation: Comments: Elbow Flexion: Extension: Pronation: Supination: Comments: Flexion: Extension: Pronation: Supination: Comments: Wrist Flexion: Extension: Ulnar Deviation: Radial Deviation: Comments: Flexion: Extension: Ulnar Deviation: Radial Deviation: Comments: Thumb Thumb CMC Flexion: Thumb MCP Flexion: Thumb IP Flexion: Radial Abduction: Palmar Abduction: Broadbent (Kapandji 0-10): 6 Comments: unable to assess due to open wound Digits Index MCP: PIP: DIP: Long MCP: PIP: DIP: Ring MCP: PIP: DIP: Small MCP: PIP: DIP: Comments: Gross Grasp: Lateral Pinch: Two-Point Pinch: Three-Jaw Shayan: Comments: Unable to assess, will assess in future visits Patient Education Primary Language: Library Cataloging Technician Required: No Current Knowledge: Understands information with skills for self-management Teaching Method: Demonstration Verbal Education Needs Identified on Evaluation: ADL's Equipment Use Exercise Pain Safety How did patient/family demonstrate learning? Patient demonstrates Patient verbalizes Barriers to Learning: None Readiness for Learning: Accepting Who was educated? Patient Comments: Plan of Care Assessment: 53 y/o F s/p digit 1&2 laceration 4 weeks post injury from cutting a pumpkin w/ a skiver operator knife. Pt presents with intermittent numbness and tingling in the 1st and 2nd digit, and decreased overall function utilizing single handed compensatory strategies during ADL/IADL tasks and work related tasks. 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 pt reports she has no pain but has intermittent sharp pains when she attempts to move her thumb. Pt presents with liquid bandage on her 5th digit wound reporting if she moves it the laceration will open again. A custom gutter splint was fabricated to protect the 1st digit during sleep. Pt will benefit from skilled OT services once the wound is fully healed to improve ROM, and function of the 1st and 2nd digits so she is able to return to as close to prior level as possible. Pt recommended to return in 2 weeks once wound is fully healed. STG Duration: 2 weeks Short Term Goals: Pt will be IND and compliant with splint wear and care schedule Pt will be IND and compliant with wound care LTG Duration: 4 weeks Residential Goals: Pt will demonstrate AROM of the 1st digit IP joint to prepare for IADL engagement Pt will demonstrate AROM of 2nd digit DIP and PIP joint to prepare for work related tasks Pt will report 0/10 pain with AROM to prepare for ADL participation Frequency and Duration: The patient will be seen 2x a week for 2 weeks Treatment Plan: Therapeutic Exercise Therapeutic Activity Home Exercise Program Splinting Patient Education Desensitization/Sensory Re-ed ADL Training Ultrasound Paraffin Fluidotherapy MHP Cold Packs Joint Mobilization Soft Tissue Mobilization Kinesiotaping Other (see comments) Skilled OT treat Electronically Signed By: Alejandra Hurtado OT/s Reviewed/agree with student documentation: Yes Therapist: Mary Daley OTR/L, CLT Please sign and return to therapist, Thank you for your referral.
--- NOTE | 2024-02-07 10:40 | MHC.OT.DC ---
[address] [phone] F: [phone] Occupational Therapy Discharge Note Patient Name: Danielle Salazar I Provider: Lorenzo David Diagnosis: Laceration of 1st and 2nd digit non op Date of Surgery: Date of Evaluation: 01/17/24 Date of Discharge: Treatments to Date: 1 Cancellations to Date: No Shows to Date: Discharge Status: Visit Non-compliance Discharge Summary: Patient did not return to therapy. Electronically Signed By: GENOVEVA Joseph/NU Kern Reviewed/agree with student documentation: Yes Therapist: CLAIRE Joseph CLT Please Sign and return to therapist, thank you for your referral.
== END 2024-02-07 10:41 | disposition home or self-care (01) ==
LOC: HO.OT 07:47
PROVIDERS: PCP Nurse Practitioner Family; Visit Provider Physician Assistant
DX: S56.422A Laceration of extensor muscle, fascia and tendon of left index finger at forearm level, initial encounter (principal)
CPT/HCPCS: 97166; 97760